=== PATIENT | female | born 1980 | race Caucasian/White ===

== ENCOUNTER 2017-04-15 07:43 | Emergency (ER) | payer OTHER ==
--- NOTE | 2017-04-15 08:34 | EDPHY ---
H & P Stated Complaint: Abdominal pain x 12 hrs, neck pain Time Seen by Provider: 04/15/17 08:34 HPI/ROS: CHIEF COMPLAINT: Abdominal pain, neck pain HISTORY OF PRESENT ILLNESS: The patient presents the emergency department for evaluation of neck and abdominal pain. She experienced symptoms last night. She does have a history of mild chronic neck pain however had a more severe episode during the evening. That more less has resolved. Shortly after developing those symptoms she developed epigastric pain and nausea. The patient reportedly has had intermittent right upper quadrant colicky pain in the past. She is not had a workup of this condition. The patient denies any melena or hematemesis. She takes no regular medications. She denies significant past surgical history. She reports that her symptoms are fairly mild at this time. REVIEW OF SYSTEMS: A comprehensive 10 point review of systems is otherwise negative aside from elements mentioned in the history of present illness. Source: Patient Exam Limitations: No limitations - Personal History LMP (Females 10-55): Now Current Tetanus/Diphtheria Vaccine: Yes Current Tetanus Diphtheria and Acellular Pertussis (TDAP): Yes - Medical/Surgical History Hx Asthma: Yes Hx Chronic Respiratory Disease: No Hx Diabetes: No Hx Cardiac Disease: No Hx Renal Disease: No Hx Cirrhosis: No Hx Alcoholism: No Hx HIV/AIDS: No Hx Splenectomy or Spleen Trauma: No Other PMH: HYPOTHYROIDISM, MISCARRAIGE 11-02 - Social History Smoking Status: Never smoked - Physical Exam Exam: General Appearance: Alert, no distress Eyes: Pupils equal and round no pallor or injection ENT, Mouth: Mucous membranes moist Respiratory: There are no retractions, lungs are clear to auscultation Cardiovascular: Regular rate and rhythm Gastrointestinal: Epigastric tenderness, no peritoneal signs Neurological: A&O, normal motor function, normal sensory exam, normal cranial nerves Skin: Warm and dry, no rashes Musculoskeletal: Neck is supple nontender Extremities: symmetrical, full range of motion Constitutional: Initial Vital Signs Temperature (C) 36.6 C 04/15/17 07:58 Heart Rate 69 04/15/17 07:58 Respiratory Rate 18 04/15/17 07:58 Blood Pressure 135/88 H 04/15/17 07:58 O2 Sat (%) 100 04/15/17 07:58 O2 Delivery Mode Room Air Allergies/Adverse Reactions: No Known Allergies Allergy (Unverified 04/15/17 07:56) Home Medications: Medication Instructions Recorded Albuterol 03/15/14 Levothyroxine 07/09/14 Medical Decision Making - Diagnostics Imaging Results: Imaging Impressions Abdomen Ultrasound 04/15/17 08:41 Impression: Normal right upper quadrant ultrasound. Findings discussed with Michael Lewis 04/15/2017 at 9:35. ED Course/Re-evaluation: The patient presents to the ED for evaluation of epigastric and right upper quadrant pain with the possibility of referred pain to the right shoulder neck. Her workup in the emergency department is unrevealing. She had a negative right upper quadrant ultrasound and no evidence of leukocytosis, hepatitis or pancreatitis. She is noted to be neurologically intact on exam. Her vital signs are stable in her abdominal examination is benign. At this point time the etiology of her symptoms are somewhat uncertain. Given the fact that she is feeling better I do feel she can be discharged from the emergency department. I would like the patient to return to the ER for any markedly worsening symptoms or other concerns. Differential Diagnosis: Differential diagnosis considered includes pancreatitis, cholecystitis, gastroenteritis, irritable bowel syndrome, cervical strain - Data Points Laboratory Results: Laboratory Results 04/15/17 08:15 04/15/17 08:15 04/15/17 04/15/17 04/15/17 08:15 08:15 08:15 WBC 5.74 10^3/uL 10^3/uL (3.80-9.50) RBC 5.37 10^6/uL H 10^6/uL (4.18-5.33) Hgb 15.8 g/dL g/dL (12.6-16.3) Hct 47.2 % H % (38.0-47.0) MCV 87.9 fL fL (81.5-99.8) MCH 29.4 pg pg (27.9-34.1) MCHC 33.5 g/dL g/dL (32.4-36.7) RDW 12.4 % % (11.5-15.2) Plt Count 292 10^3/uL 10^3/uL (150-400) MPV 9.6 fL fL (8.7-11.7) Neut % (Auto) 50.7 % % (39.3-74.2) Lymph % (Auto) 37.5 % % (15.0-45.0) [place] % (Auto) 7.0 % % (4.5-13.0) Eos % (Auto) 3.7 % % (0.6-7.6) Baso % (Auto) 0.9 % % (0.3-1.7) Nucleat RBC Rel Count 0.0 % % (0.0-0.2) Absolute Neuts (auto) 2.92 10^3/uL 10^3/uL (1.70-6.50) Absolute Lymphs (auto) 2.15 10^3/uL 10^3/uL (1.00-3.00) Absolute Monos (auto) 0.40 10^3/uL 10^3/uL (0.30-0.80) Absolute Eos (auto) 0.21 10^3/uL 10^3/uL (0.03-0.40) Absolute Basos (auto) 0.05 10^3/uL 10^3/uL (0.02-0.10) Absolute Nucleated RBC 0.00 10^3/uL 10^3/uL (0-0.01) Immature Gran % 0.2 % % (0.0-1.1) Immature Gran # 0.01 10^3/uL 10^3/uL (0.00-0.10) Sodium 145 mEq/L mEq/L (135-145) Potassium 4.2 mEq/L mEq/L (3.5-5.2) Chloride 107 mEq/L mEq/L (97-110) Carbon Dioxide 25 mEq/l mEq/l (22-31) Anion Gap 13 mEq/L mEq/L (8-16) BUN 14 mg/dL mg/dL (7-23) Creatinine 0.9 mg/dL mg/dL (0.6-1.0) Estimated GFR > 60 Glucose 79 mg/dL mg/dL (70-100) Calcium 9.8 mg/dL mg/dL (8.5-10.4) Total Bilirubin 0.8 mg/dL mg/dL (0.1-1.4) Conjugated Bilirubin 0.3 mg/dL mg/dL (0.0-0.5) Unconjugated Bilirubin 0.5 mg/dL mg/dL (0.0-1.1) AST 25 IU/L IU/L (14-46) ALT 30 IU/L IU/L (9-52) Alkaline Phosphatase 87 IU/L IU/L (38-126) Total Protein 7.8 g/dL g/dL (6.3-8.2) Albumin 4.5 g/dL g/dL (3.5-5.0) Lipase 242 IU/L IU/L (23-300) Beta HCG, Qual NEGATIVE Departure - Departure Disposition: Home, Routine, Self-Care Clinical Impression: Abdominal pain Condition: Good Instructions: Abdominal Pain (ED) Additional Instructions: 1. Sometimes we are unable to diagnose an obvious cause of abdominal pain in the Emergency Department. Based upon our evaluation today, we see no obvious explanation for your pain. Because more serious conditions can be difficult to diagnose early in the course of their presentation, we ask that you return to the Emergency Department in 8-12 hours for a recheck if you are still having pain. This is necessary to exclude the development of a more serious condition such as appendicitis or other intra-abdominal emergency. In the event your pain markedly increases before that time or you develop intractable vomiting or fever return to the Emergency Department immediately. 2. I do recommend following up with our retail operations specialist for any ongoing symptoms. Referrals: González Gaines MD [Medical Doctor] - As per Instructions
[2017-04-15 08:48] LABS: PLATELET COUNT 292 10^3/uL (150-400)
[2017-04-15 10:04] VITALS: BP 118/75; PULSE 66; RESP 16; TEMP 98.2; O2SAT 98
== END 2017-04-15 10:03 | disposition home or self-care (01) ==
DX: R10.13 Epigastric pain (principal); J45.909 Unspecified asthma, uncomplicated

== ENCOUNTER 2018-06-19 16:13 | Emergency (ER) | payer OTHER ==
[2018-06-19] MEDS ORDERED: ASPIRIN 81 MG CHEWABLE TAB PO ONE (16:29)
[2018-06-19] MEDS ORDERED: NS 1,000 ML IV ONE (16:29)
--- NOTE | 2018-06-19 16:31 | EDPHY ---
H & P Stated Complaint: asthma and chronic cough with chest pain since february, acid reflux Time Seen by Provider: 06/19/18 16:16 HPI/ROS: CHIEF COMPLAINT: Chest pain, shortness of breath HISTORY OF PRESENT ILLNESS: Patient is a 37-year-old female with a history of asthma and seasonal allergies who states that she has had mild chest pain and mild shortness of breath since February. She states that it all began with an intense cough that her primary thought was whooping cough. She was treated with steroids and antibiotics. Her symptoms seem to improve but she states she has gotten "every cold and infection possible" over the last 4 months. She thinks that her immune system has been extremely weakened. She has been seen by her primary doctor several times and had a negative EKG and chest x-ray. She has been referred to a digital account director who order pulmonary function tests which the patient had not scheduled until today because she felt like her symptoms improved. When she called today to scheduled an appointment she told them that she was having chest pain and they recommended she come to the ER. She denies recent fevers or cold symptoms. She is no longer coughing. She was seen here in March with right upper quadrant pain and right neck pain and had negative abdominal pain workup. She denies recent travel. She denies recent or procedure. She does not smoke. Severity: Moderate Modifying factors: None REVIEW OF SYSTEMS: Constitutional: denies: chills, fever, recent illness, recent injury EENTM: denies: blurred vision, double vision, nose congestion Respiratory: See HPI Cardiac: See HPI Gastrointestinal/Abdominal: denies: abdominal pain, diarrhea, nausea, vomiting, blood streaked stools Genitourinary: denies: dysuria, frequency, hematuria, pain Musculoskeletal: denies: joint pain, muscle pain Skin: denies: lesions, rash, jaundice, bruising Neurological: denies: headache, numbness, paresthesia, tingling, dizziness, weakness Hematologic/Lymphatic: denies: blood clots, easy bleeding, easy bruising Immunologic/allergic: denies: HIV/AIDS, transplant 10 systems reviewed and negative except as noted EXAM: GENERAL: Well-appearing, well-nourished and in no acute distress. HEAD: Atraumatic, normocephalic. EYES: Pupils equal round and reactive to light, extraocular movements intact, sclera anicteric, conjunctiva are normal. ENT: TMs normal, nares patent, oropharynx clear without exudates. Moist mucous membranes. NECK: Normal range of motion, supple without lymphadenopathy or JVD. LUNGS: Breath sounds clear to auscultation bilaterally and equal. No wheezes rales or rhonchi. HEART: Regular rate and rhythm without murmurs, rubs or gallops. ABDOMEN: Soft, nontender, normoactive bowel sounds. No guarding, no rebound. No masses appreciated. BACK: No CVA tenderness, no spinal tenderness, step-offs or deformities EXTREMITIES: Normal range of motion, no pitting or edema. No clubbing or cyanosis. NEUROLOGICAL: Cranial nerves II through XII grossly intact. Normal speech, normal gait. 5/5 strength, normal movement in all extremities, normal sensation , normal reflexes PSYCH: Normal mood, normal affect. SKIN: Warm, dry, normal turgor, no visible rashes or lesions. Source: Patient Exam Limitations: No limitations - Personal History LMP (Females 10-55): 8-14 Days Ago Current Tetanus/Diphtheria Vaccine: Yes Current Tetanus Diphtheria and Acellular Pertussis (TDAP): Yes - Medical/Surgical History Hx Asthma: Yes Hx Chronic Respiratory Disease: No Hx Diabetes: No Hx Cardiac Disease: No Hx Renal Disease: No Hx Cirrhosis: No Hx Alcoholism: No Hx HIV/AIDS: No Hx Splenectomy or Spleen Trauma: No Other PMH: HYPOTHYROIDISM, sesonnal allergies, asthma - Family History Significant Family History: No pertinent family hx - Social History Smoking Status: Never smoked Alcohol Use: None Constitutional: Initial Vital Signs Temperature (C) 37 C 06/19/18 16:18 Heart Rate 73 06/19/18 16:18 Respiratory Rate 18 06/19/18 16:18 Blood Pressure 155/80 H 06/19/18 16:18 O2 Sat (%) 98 06/19/18 16:18 O2 Delivery Mode Room Air Allergies/Adverse Reactions: No Known Allergies Allergy (Unverified 04/15/17 07:56) Home Medications: Medication Instructions Recorded Albuterol 03/15/14 Levothyroxine 07/09/14 Advair 100/50 (*) 06/19/18 Medical Decision Making - Diagnostics Imaging Results: Imaging Impressions Chest X-Ray 06/19/18 16:29 Impression: No acute pulmonary disease. Imaging: Discussed imaging studies w/ mail caller Radiologist ED Course/Re-evaluation: The patient's symptoms have been somewhat chronic. Her exam is unremarkable. She has already seen a digital account director. She is very low risk for cardiac disease. Will obtain basic cardiac and pulmonary workup. We discussed expectations. Patient states that she would not have come here accept the nurse on the phone recommended she come. She declines DuoNeb. 5:45 p.m. Patient continues to feel well. We discussed test results which are reassuring. She is eager to go home. She is appoint with her digital account director in 2 days for pulmonary function tests. I encouraged her to keep this appointment. She declines further workup or testing at this time. Differential Diagnosis: Partial list of the Differential diagnosis considered include but were not limited to; asthma, allergic reaction, anxiety and although unlikely based on the history and physical exam, I also considered acute coronary disease, pneumonia, pneumothorax, bronchitis. I discussed these differential diagnoses and the plan with the patient as well as the usual and expected course. The patient understands that the diagnosis is provisional and that in medicine we are not always correct and that further workup is often warranted. Usual and customary warnings were given. All of the patient's questions were answered. The patient was instructed to return to the emergency department should the symptoms at all worsen or return, otherwise to followup with the physician as we discussed. - Data Points Laboratory Results: Laboratory Results 06/19/18 16:30 06/19/18 16:30 06/19/18 06/19/18 06/19/18 16:30 16:30 16:30 WBC RBC Hgb Hct MCV MCH MCHC RDW Plt Count MPV Neut % (Auto) Lymph % (Auto) [place] % (Auto) Eos % (Auto) Baso % (Auto) Nucleat RBC Rel Count Absolute Neuts (auto) Absolute Lymphs (auto) Absolute Monos (auto) Absolute Eos (auto) Absolute Basos (auto) Absolute Nucleated RBC Immature Gran % Immature Gran # PT 12.2 SEC SEC (12.0-15.0) INR 0.94 (0.83-1.16) APTT 29.2 SEC SEC (23.0-38.0) D-Dimer 0.36 ug/mLFEU ug/mLFEU (0.00-0.50) Sodium 136 mEq/L mEq/L (135-145) Potassium 3.8 mEq/L mEq/L (3.5-5.2) Chloride 103 mEq/L mEq/L (97-110) Carbon Dioxide 25 mEq/l mEq/l (22-31) Anion Gap 8 mEq/L mEq/L (6-14) BUN 15 mg/dL mg/dL (7-23) Creatinine 0.9 mg/dL mg/dL (0.6-1.0) Estimated GFR > 60 Glucose 81 mg/dL mg/dL (70-100) Calcium 10.5 mg/dL H mg/dL (8.5-10.4) Total Bilirubin 0.3 mg/dL mg/dL (0.1-1.4) Conjugated Bilirubin 0.3 mg/dL mg/dL (0.0-0.5) Unconjugated Bilirubin 0.0 mg/dL mg/dL (0.0-1.1) AST 23 IU/L IU/L (14-46) ALT 22 IU/L IU/L (9-52) Alkaline Phosphatase 76 IU/L IU/L (38-126) Total Protein 7.5 g/dL g/dL (6.3-8.2) Albumin 4.3 g/dL g/dL (3.5-5.0) Lipase 71 IU/L IU/L (23-300) TSH 7.260 uIU/mL H uIU/mL (0.465-4.680) Free T4 0.78 ng/dL ng/dL (0.59-2.19) Beta HCG, Qual NEGATIVE 06/19/18 16:30 WBC 10.01 10^3/uL H 10^3/uL (3.80-9.50) RBC 5.00 10^6/uL 10^6/uL (4.18-5.33) Hgb 14.4 g/dL g/dL (12.6-16.3) Hct 43.7 % % (38.0-47.0) MCV 87.4 fL fL (81.5-99.8) MCH 28.8 pg pg (27.9-34.1) MCHC 33.0 g/dL g/dL (32.4-36.7) RDW 12.5 % % (11.5-15.2) Plt Count 304 10^3/uL 10^3/uL (150-400) MPV 9.3 fL fL (8.7-11.7) Neut % (Auto) 54.6 % % (39.3-74.2) Lymph % (Auto) 32.9 % % (15.0-45.0) [place] % (Auto) 5.9 % % (4.5-13.0) Eos % (Auto) 5.6 % % (0.6-7.6) Baso % (Auto) 0.8 % % (0.3-1.7) Nucleat RBC Rel Count 0.0 % % (0.0-0.2) Absolute Neuts (auto) 5.47 10^3/uL 10^3/uL (1.70-6.50) Absolute Lymphs (auto) 3.29 10^3/uL H 10^3/uL (1.00-3.00) Absolute Monos (auto) 0.59 10^3/uL 10^3/uL (0.30-0.80) Absolute Eos (auto) 0.56 10^3/uL H 10^3/uL (0.03-0.40) Absolute Basos (auto) 0.08 10^3/uL 10^3/uL (0.02-0.10) Absolute Nucleated RBC 0.00 10^3/uL 10^3/uL (0-0.01) Immature Gran % 0.2 % % (0.0-1.1) Immature Gran # 0.02 10^3/uL 10^3/uL (0.00-0.10) PT INR APTT D-Dimer Sodium Potassium Chloride Carbon Dioxide Anion Gap BUN Creatinine Estimated GFR Glucose Calcium Total Bilirubin Conjugated Bilirubin Unconjugated Bilirubin AST ALT Alkaline Phosphatase Total Protein Albumin Lipase TSH Free T4 Beta HCG, Qual Medications Given: Discontinued Medications Aspirin (Aspirin) 324 mg PO EDNOW ONE Stop: 06/19/18 16:30 Last Admin: 06/19/18 16:39 Dose: 324 mg Sodium Chloride (Ns) 1,000 mls @ 0 mls/hr IV EDNOW ONE; Wide Open PRN Reason: Protocol Stop: 06/19/18 16:30 Last Admin: 06/19/18 16:40 Dose: 1,000 mls Departure - Departure Disposition: Home, Routine, Self-Care Clinical Impression: Chest pain Qualifiers: Chest pain type: unspecified Qualified Code(s): R07.9 - Chest pain, unspecified Condition: Fair Instructions: Chest Pain (ED) Referrals: Saira Fuentes, [Primary Care Provider] - 2-3 days, call for appt.
[2018-06-19 16:36] LABS: PLATELET COUNT 304 10^3/uL (150-400)
--- NOTE | 2018-06-19 16:39 | CPEKG ---
Test Reason : OPEN Blood Pressure : / mmHG Vent. Rate : 083 BPM Atrial Rate : 083 BPM P-R Int : 135 ms QRS Dur : 096 ms QT Int : 382 ms P-R-T Axes : 071 078 046 degrees QTc Int : 449 ms Sinus rhythm Confirmed by Feliberto Cerrato ([id number]) on 06/19/2018 4:39:14 PM Referred By: Feliberto Cerrato Confirmed By:Feliberto Cerrato
[2018-06-19 16:46] LABS: INR 0.94 (0.83-1.16); PROTIME(PATIENT) 12.2 SEC (12.0-15.0)
[2018-06-19 17:34] VITALS: BP 108/70
== END 2018-06-19 17:50 | disposition home or self-care (01) ==
DX: R07.9 Chest pain, unspecified (principal); J45.909 Unspecified asthma, uncomplicated; E03.9 Hypothyroidism, unspecified; E86.9 Volume depletion, unspecified